=== PATIENT | male | born 1945 | race Hispanic/Latino ===

== ENCOUNTER 2021-12-26 10:09 | Emergency (ER) | payer OTHER ==
[~2021-12-26] VITALS: Ht 167.6 cm; Wt 78.0 kg
[2021-12-26 11:02] LABS: BASOPHILS % (AUTO) 0.4 % (0.0-5.0); EOSINOPHILS % (AUTO) 1.4 % (0.0-8.0); HEMATOCRIT 41.4 % (42-54); LYMPHOCYTES % (AUTO) 24.1 % (21.0-51.0); MEAN CORPUSCULAR HEMOGLOBIN 31.6 pg (27.0-33.0); MEAN CORPUSCULAR HGB CONC 32.9 g/dL (32.0-36.0); MEAN CORPUSCULAR VOLUME 96.1 fL (79-99); MONOCYTES % (AUTO) 7.4 % (3.0-13.0); NEUTROPHILS % (AUTO) 66.5 % (40.0-77.0); PLATELET COUNT (AUTO) 220 K/uL (130-400); RED BLOOD CELL COUNT(AUTO) 4.31 MIL/uL (4.50-6.20); RED CELL DISTRIBUTION WIDTH 13.1 % (11.0-15.5)
[2021-12-26 11:18] LABS: ALBUMIN 2.9 g/dL (3.5-5.0); BILIRUBIN,TOTAL 0.7 mg/dL (0.2-1.0); CREATININE 1.7 mg/dL (0.5-1.5); POTASSIUM 3.4 mmol/L (3.5-5.1); TOTAL PROTEIN, SERUM 7.6 g/dL (6.0-8.3); URIC ACID 9.5 mg/dL (2.6-7.2)
[2021-12-26] MEDS ORDERED: PRED20TA3 PO (11:56)
[2021-12-26] MEDS ORDERED: IBUP-2088 PO (11:56)
[2021-12-26 11:58] LABS: ERYTHROCYTE SEDIMENTATION RATE 80 MM/HR (0-20)
[2021-12-26 12:39] VITALS: BP 150/64
[2021-12-26] MEDS: OXYCODONE HCL 20 MG/ML ORAL.CONC 0.25ML PO SCH (12:58)
== END 2021-12-26 13:08 | disposition home or self-care (01) ==
LOC: EDH 10:09
DX: M10.041 Idiopathic gout, right hand (principal); E78.00 Pure hypercholesterolemia, unspecified; I12.9 Hypertensive chronic kidney disease with stage 1 through stage 4 chronic kidney disease, or unspecified chronic kidney disease; N18.9 Chronic kidney disease, unspecified; Z86.718 Personal history of other venous thrombosis and embolism; Z90.89 Acquired absence of other organs; Z98.890 Other specified postprocedural states; Z79.899 Other long term (current) drug therapy
CPT/HCPCS: 36415; 73090; 73130; 80053; 83605; 84550; 85025; 85651; 87040

== ENCOUNTER 2022-02-06 20:11 | Emergency (ER) | payer OTHER ==
[~2022-02-06] VITALS: Ht 167.6 cm; Wt 79.4 kg
[~2022-02-06 20:11] MED LIST: IBUP-2088 PO; PRED20TA3 PO
[2022-02-06 20:37] LABS: APPEARANCE,URINE SL CLOUDY (CLEAR); BILIRUBIN,URINE NEGATIVE (NEGATIVE); COLOR,URINE ORANGE (YELLOW); GLUCOSE, URINE (UA) NEGATIVE (NEGATIVE); KETONES,URINE NEGATIVE (NEGATIVE); LEUKOCYTE ESTERASE ,URINE TRACE (NEGATIVE); NITRATE,URINE POSITIVE (NEGATIVE); OCCULT BLOOD,URINE SMALL (NEGATIVE); PH,URINE 6.5 (5.0-8.0); PROTEIN,URINE 100 mg/dL (NEGATIVE)
[2022-02-06 20:44] LABS: BACTERIA,URINE Moderate /HPF (None Seen); MUCUS,URINE None Seen LPF (None Seen); SQUAMOUS EPITHELIAL CELL,UR None Seen /HPF (0-2)
[2022-02-06] MEDS ORDERED: CEPH500B PO (20:59)
[2022-02-06] MEDS ORDERED: ACETAMINOPHEN 500 MG TABLET PO ONE (21:00)
[2022-02-06] MEDS ORDERED: CEFTRIAXONE 1G VIAL IM ONE (21:00)
[2022-02-06] MEDS ORDERED: PHARMACY COMMUNICATION MISC SCH (21:00)
[2022-02-06] MEDS ORDERED: ONDANSETRON ODT 4MG TAB SL ONE (21:00)
[2022-02-06 21:17] VITALS: BP 134/75
== END 2022-02-06 21:30 | disposition home or self-care (01) ==
LOC: EDH 20:11
DX: R33.9 Retention of urine, unspecified (principal); N39.0 Urinary tract infection, site not specified; I12.9 Hypertensive chronic kidney disease with stage 1 through stage 4 chronic kidney disease, or unspecified chronic kidney disease; N18.9 Chronic kidney disease, unspecified; E78.00 Pure hypercholesterolemia, unspecified; Z79.1 Long term (current) use of non-steroidal anti-inflammatories (NSAID); Z79.52 Long term (current) use of systemic steroids; Z86.718 Personal history of other venous thrombosis and embolism
CPT/HCPCS: 99284; 87077; 87088; 87186; 81001; 51702; 96372; J0696